=== PATIENT | female | born 1980 ===

== ENCOUNTER 2016-09-03 15:43 | Inpatient (IN) | payer SELFPAY ==
[2016-09-03] MEDS ORDERED: Sodium Chloride 0.9% 1,000 ML IV STA ×2 (16:41→20:21)
[2016-09-03 17:10] LABS: BASO % 0.2 % (0.0-2.0); EOS % 0.2 % (0.0-4.0); LYMPH # 1.1 K/uL (1.0-4.3); MEAN CELL VOLUME 86.5 fl (81.0-99.0); MEAN CORPUSCULAR HEMOGLOBIN 28.9 pg (27.0-31.0); MEAN CORPUSCULAR HGB CONC 33.4 g/dL (33.0-37.0); MEAN PLATELET VOLUME 9.2 fl (7.2-11.7); MONO # 0.5 K/uL (0.0-0.8); MONO % 4.8 % (0.0-10.0); NEUT # 8.6 K/uL (1.8-7.0); NEUT % 83.8 % (50.0-75.0); NRBC % 0.1 % (0.0-0.0); RED CELL DISTRIBUTION WIDTH 13.9 % (11.5-14.5); WHITE BLOOD COUNT 10.2 K/uL (4.8-10.8)
[2016-09-03 17:20] LABS: RBC URINE 50 /hpf (0-3); URINE BACTERIA RARE (<OCC); URINE BILIRUBIN NEGATIVE (NEGATIVE); URINE BLOOD MODERATE (NEGATIVE); URINE COLOR YELLOW (YELLOW); URINE GLUCOSE (UA) NEG (Normal); URINE KETONE TRACE mg/dL (NEGATIVE); URINE LEUKOCYTE ESTERASE LARGE Leu/uL (Negative); URINE PROTEIN 100 mg/dL (NEGATIVE); URINE UROBILINOGEN 0.2-1.0 mg/dL (0.2-1.0); WBC CLUMPS MANY /hpf; WBC URINE 477 /hpf (0-5)
[2016-09-03 17:26] LABS: ALB/GLOB RATIO 1.2 (1.0-2.1); ALKALINE PHOSPHATASE 85 U/L (38-126); ALT/SGPT 35 U/L (9-52); AST/SGOT 44 U/L (14-36); BILIRUBIN,TOTAL 0.4 mg/dl (0.2-1.3); BLOOD UREA NITROGEN 13 mg/dl (7-17); CALCIUM 9.3 mg/dL (8.4-10.2); CARBON DIOXIDE 25 mmol/L (22-30); CHLORIDE 101 mmol/L (98-107); GFR AFRICAN-AMERICAN > 60; GLUCOSE,RANDOM 124 mg/dL (65-105); LIPASE 20 U/L (23-300); POTASSIUM 3.4 MMOL/L (3.6-5.0); SODIUM 141 mmol/l (132-148)
--- NOTE | 2016-09-03 17:36 | US ---
HISTORY: RUQ pain with nausea COMPARISON: 10/18/2013 bilateral renal ultrasound 10/18/2013 CT abdomen and pelvis. TECHNIQUE: Sonographic evaluation of the right upper quadrant of the abdomen. FINDINGS: LIVER: Measures 13.1 cm in length. Patent portal vein. Portal venous flow: Hepatopetal. Unremarkeable echogenicity of the liver parenchyma. No mass. No intrahepatic bile duct dilatation. GALLBLADDER: Unremarkable. No gallstones. COMMON BILE DUCT: Measures 3.9 mm. No stones. No dilatation. PANCREAS: Unremarkable as visualized. No mass. No ductal dilatation. RIGHT KIDNEY: Measures 6.4 x 10.9 cm in length. Normal echogenicity. No calculus, mass, or hydronephrosis. AORTA: Obscured by overlying bowel gas. Non diagnostic assessment of abdominal aorta. IVC: Obscured by overlying bowel gas. Limited assessment of the IVC. OTHER FINDINGS: None . IMPRESSION: No significant or acute findings to account for/ related to the clinical presentation.
--- NOTE | 2016-09-03 17:38 | ED PDOC ---
HPI: Abdomen Chief Complaint (Provider): abdominal pain History Per: Patient History/Exam Limitations: no limitations <Milka Ricketts - Last Filed: 09/03/16 20:01> <Rhonda Montoya - Last Filed: 09/05/16 15:48> Time Seen by Provider: 09/03/16 16:04 Chief Complaint (Nursing): Abdominal Pain Additional Complaint(s): 35yo F in ED for eval of abdominal pain-in ED with 2-3 days of RUQ pain radiating to back with nausea without vomiting, no fever, chills. Able to tolerate PO. denies CP, SOB, palpitations. Denies freq urination, blood in urine or pelvic cramping with urination. hx of renal stones. pain 8/10 at its worse (Milka Ricketts) Supervising Attending Note - Supervising Attending Note The Documented history was done by the: Physician Director Appointment, Attending Physician The documented physical exam was done by the: Physician Director Appointment, Attending Physician - Attestation: I have personally seen and examined this patient.: Yes I have fully participated in the care of the patient.: Yes I have reviewed all pertinent clinical information: Yes <Rhonda Montoya - Last Filed: 09/05/16 15:48> Past Medical History Reviewed: Historical Data, Nursing Documentation, Vital Signs - Medical History PMH: No Chronic Diseases - Family History Family History: States: No Known Family Hx <Milka Ricketts - Last Filed: 09/03/16 20:01> <Rhonda Montoya - Last Filed: 09/05/16 15:48> Vital Signs: Last Vital Signs Temp 99.5 F 09/04/16 16:35 Pulse 93 H 09/04/16 16:35 Resp 20 09/04/16 16:35 BP 133/88 09/04/16 16:35 Pulse Ox 97 09/04/16 16:35 - Allergies Allergies/Adverse Reactions: Allergies Allergy/AdvReac Type Severity Reaction Status Date / Time No Known Allergies Allergy Verified 09/03/16 15:44 Review of Systems ROS Statement: Except As Marked, All Systems Reviewed And Found Negative Constitutional: Negative for: Fever, Chills Cardiovascular: Negative for: Chest Pain, Palpitations Gastrointestinal: Positive for: Nausea, Vomiting, Abdominal Pain. Negative for : Diarrhea, Constipation Genitourinary Female: Negative for: Dysuria <Milka Ricketts - Last Filed: 09/03/16 20:01> Physical Exam - Reviewed Nursing Documentation Reviewed: Yes Vital Signs Reviewed: Yes - Physical Exam Appears: Positive for: Non-toxic, No Acute Distress, Uncomfortable Head Exam: Positive for: ATRAUMATIC, NORMAL INSPECTION, NORMOCEPHALIC Cardiovascular/Chest: Positive for: Regular Rate, Rhythm Respiratory: Positive for: CNT, Normal Breath Sounds Gastrointestinal/Abdominal: Positive for: Bowel Sounds, Soft, Tenderness (RUQ pain). Negative for: Distended, Guarding Back: Positive for: L CVA Tenderness. Negative for: R CVA Tenderness Extremity: Positive for: Normal ROM Neurologic/Psych: Positive for: Alert, Oriented <Milka Ricketts - Last Filed: 09/03/16 20:01> - Laboratory Results Result Diagrams: 09/03/16 16:30 09/03/16 16:30 - ECG O2 Sat by Pulse Oximetry: 100 <Milka Ricketts - Last Filed: 09/03/16 20:01> - Laboratory Results Result Diagrams: 09/04/16 07:30 09/04/16 07:30 <Rhonda Montoya - Last Filed: 09/05/16 15:48> - Progress ED Course And Treament: pt with abdominal pain r/o renal stone vs cholecytisitis vs UTI. will get UA, US limited GB, CT w/o IV/PO contrast and fluids, zofran and torodol for pain control. (Milka Ricketts) - Critical Care Notes:: Pt UA: shows UTI, US: NAD labs WNL. (Milka Ricketts) Medical Decision Making <Milka Ricketts - Last Filed: 09/03/16 20:01> <Rhonda Montoya - Last Filed: 09/05/16 15:48> Medical Decision Making: CT results: 1. Staghorn calculi in the left kidney, largest measures approximately 4.6 cm. The Staghorn calculus extends into the proximal ureter. There is severe left hydronephrosis with renal cortical thinning. 2. Hyperdensity of left medullary pyramids, indicative of medullary nephrocalcinosis. Correlate clinically. 3. Retroperitoneal lymphadenopathy is noted, the largest in the periaortic region measures 2.6 x 1.3 cm. Thank you for allowing us to participate in the care of your patient. case discussed with MD Jan pt with evidence of pyelonephritis based on UA/symptoms complicated by staghorn calculi with hydronephrosis Pt will be admitted to hospitalist and Shruti urology consult pt improved mildly in ED but still with some nausea and back pain (Milka Ricketts) Disposition - Patient ED Disposition Is Patient to be Admitted: Yes - Disposition Disposition Time: 20:30 - Pt Status Changed To: Hospital Disposition Of: Inpatient - Admit Certification Admit to Inpatient:: After my assessment, the patient will require hospitalization for at least two midnights. This is because of the severity of symptoms shown, intensity of services needed, and/or the medical risk in this patient being treated as an outpatient. - POA Present On Arrival: None <Milka Ricketts - Last Filed: 09/03/16 20:01> <Rhonda Montoya - Last Filed: 09/05/16 15:48> - Clinical Impression Clinical Impression: Pyelonephritis, Renal stone - Disposition Condition: STABLE
--- NOTE | 2016-09-03 21:02 | ED PDOC ---
- Laboratory Results Result Diagrams: 09/03/16 16:30 09/03/16 16:30 - ECG O2 Sat by Pulse Oximetry: 100 - Progress ED Course And Treament: Signed out to me pending urology consult. 2100 Case d/w Dr. Bahena, urology plant operations manager, who agrees with care and plan. Disposition - Clinical Impression Clinical Impression: Pyelonephritis, Renal stone - POA Present On Arrival: None - Disposition Disposition: Routine/Home Disposition Time: 21:01 Condition: STABLE
[2016-09-03] MEDS ORDERED: Potassium Chloride 20 mEq ER Tab PO ONE ×2 (21:44→22:01)
--- NOTE | 2016-09-03 21:44 | CP.PCM.HP ---
History of Present Illness - History of Present Illness History of Present Illness: CC: abd pain L>R, n/v History taken in [place] via adult family members HPI: This is a 35 y/o female with a history of nephrolithiasis (requiring urology intervention in the past) who comes in with ~2 days of abdominal/L flank pain as well as n and an episode of vomiting. Denies dysuria or blood in urine. Denies f/c. ROS: 14 systems revealed, negative other than HPI MHx: Nephrolithiasis SHx: Urological intervention for above Allergies: NKDA Medications: None Family Hx: None per review Social Hx: Lives with family, denies EtOH, denies tobacco Present on Admission - Present on Admission Any Indicators Present on Admission: No Past Patient History - Past Social History Smoking Status: Never Smoked - RENAL Hx Chronic Kidney Disease: Yes Hx Kidney Stones: Yes - PSYCHIATRIC Hx Substance Use: No - SURGICAL HISTORY Hx Surgeries: Yes Other/Comment: Kidney stone - ANESTHESIA Hx Anesthesia: Yes Hx Anesthesia Reactions: No Hx Malignant Hyperthermia: No Meds Allergies/Adverse Reactions: Allergies Allergy/AdvReac Type Severity Reaction Status Date / Time No Known Allergies Allergy Verified 09/03/16 15:44 Physical Exam - Constitutional Appears: No Acute Distress - Head Exam Head Exam: ATRAUMATIC, NORMOCEPHALIC - Eye Exam Eye Exam: EOMI, PERRL - ENT Exam ENT Exam: Mucous Membranes Dry - Neck Exam Neck exam: Positive for: Full Rom - Respiratory Exam Respiratory Exam: Clear to Auscultation Bilateral, NORMAL BREATHING PATTERN - Cardiovascular Exam Cardiovascular Exam: REGULAR RHYTHM, +S1, +S2 - GI/Abdominal Exam GI & Abdominal Exam: Normal Bowel Sounds, Soft, Tenderness - Back Exam Back exam: CVA tenderness (L) - Neurological Exam Neurological exam: Alert, CN II-XII Intact, Oriented x3 - Psychiatric Exam Psychiatric exam: Normal Affect, Normal Mood - Skin Skin Exam: Dry, Warm Results - Vital Signs Recent Vital Signs: Last Vital Signs Temp 99.2 F 09/03/16 15:45 Pulse 85 09/03/16 17:44 Resp 16 09/03/16 17:44 BP 142/85 09/03/16 17:44 Pulse Ox 100 09/03/16 21:02 - Labs Result Diagrams: 09/03/16 16:30 09/03/16 16:30 - Imaging and Cardiology CT scan - abdomen Status: Image reviewed by me, Report reviewed by me (CT results:) Assessment & Plan (1) Pyelonephritis Assessment and Plan: 35 y/o female presenting with staghorn calculus (L) and pyelonepnritis. -NPO, IVF -Continue ceftriaxone 1 g daily -Continue pain mgmt as per scale -Will start on Flomax, although given extensiveness of calculus may not provide significant improvement -Urology consult ([place] notified) -SCDs only for DVT ppx in case of procedure Status: Acute (2) Renal stone Status: Acute (3) DVT prophylaxis Status: Acute
[2016-09-03] MEDS ORDERED: cefTRIAXone (Rocephin) 1 gm Inj ONE (22:01)
[2016-09-03] MEDS: Sodium Chloride 0.9% 1,000 ML IV SCH (23:43)
[2016-09-04] MEDS: Sodium Chloride 0.9% 1,000 ML IV SCH (06:35)
[2016-09-04 10:12] LABS: BASO % 0.3 % (0.0-2.0); EOS # 0.1 K/uL (0.0-0.7); EOS % 1.3 % (0.0-4.0); HEMATOCRIT 33.6 % (34.0-47.0); LYMPH % 20.7 % (20.0-40.0); MEAN CELL VOLUME 88.2 fl (81.0-99.0); MEAN CORPUSCULAR HEMOGLOBIN 28.7 pg (27.0-31.0); MEAN CORPUSCULAR HGB CONC 32.6 g/dL (33.0-37.0); MEAN PLATELET VOLUME 9.2 fl (7.2-11.7); MONO # 0.5 K/uL (0.0-0.8); MONO % 9.5 % (0.0-10.0); NEUT # 3.3 K/uL (1.8-7.0); NEUT % 68.2 % (50.0-75.0); RED CELL DISTRIBUTION WIDTH 14.6 % (11.5-14.5)
[2016-09-04 10:18] LABS: WHITE BLOOD COUNT 4.9 K/uL (4.8-10.8)
[2016-09-04 10:27] LABS: BLOOD UREA NITROGEN 8 mg/dl (7-17); CALCIUM 7.9 mg/dL (8.4-10.2); CARBON DIOXIDE 21 mmol/L (22-30); CHLORIDE 112 mmol/L (98-107); GFR AFRICAN-AMERICAN > 60; GLUCOSE,RANDOM 87 mg/dL (65-105); POTASSIUM 3.8 MMOL/L (3.6-5.0); SODIUM 139 mmol/l (132-148)
--- NOTE | 2016-09-04 11:08 | CT ---
PROCEDURE: CT Abdomen and Pelvis without contrast. HISTORY: left CVA tenderness COMPARISON: 10/18/2013 TECHNIQUE: Contiguous axial images of the abdomen and pelvis. No oral or IV contrast given. Coronal and Sagittal reformats generated. Please note that due to lack of intravenous and oral contrast, evaluation of soft tissue structures and bowel is limited. Radiation dose: Total exam DLP = 894.35 mGy-cm. This CT exam was performed using one or more of the following dose reduction techniques: Automated exposure control, adjustment of the mA and/or kV according to patient size, and/or use of iterative reconstruction technique. FINDINGS: LOWER THORAX: Unremarkable. LIVER: Unremarkable. No gross lesion or ductal dilatation. GALLBLADDER AND BILE DUCTS: Unremarkable. PANCREAS: Unremarkable. No mass. No ductal dilatation. SPLEEN: Unremarkable. No splenomegaly. ADRENALS: Unremarkable. KIDNEYS AND URETERS: Unremarkable. No stone or hydronephrosis. Enlargement of the left kidney with multiple large staghorn calculi is within collecting system. Moderate hydronephrosis. No significant hydroureter or obstructing radiopaque calculus within the left ureter. The left cortex is thin suggestive of chronic renal parenchymal disease. 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 Unremarkable right kidney. BLADDER: Grossly unremarkable. REPRODUCTIVE: Please note that evaluation of gynecologic organs is not optimal on CT imaging. Punctate calcification in the left adnexa which could be ovarian in origin. APPENDIX: Unremarkable. BOWEL: Suboptimal evaluation of the bowel due to lack oral contrast. No bowel obstruction. PERITONEUM: Small amount of fluid in the pelvis likely physiologic. No free air. LYMPH NODES: Few enlarged lymph nodes in the retroperitoneum particularly in the region of the left kidney measuring up to 2-3 centimeters. VASCULATURE: Unremarkable. No aortic aneurysm. BONES: No fracture or destructive lesion. OTHER FINDINGS: Calcified granuloma in the posterior soft tissues. IMPRESSION: Large staghorn calculi within the left collecting system associated cortical thinning and enlargement of the left kidney. 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 Moderate hydronephrosis on the left. No obstructing radiopaque calculus on the left. Relatively unremarkable right kidney. Enlarged lymph nodes in the retroperitoneum near the vicinity of the left kidney measuring up to 2-3 centimeters. Other findings as above. Please note that this report is in general agreement with the preliminary report provided by [facility].
--- NOTE | 2016-09-04 14:55 | CP.PCM.DIS ---
Provider - Provider Date of Admission: 09/03/16 20:41 Attending physician: Kali Parker MD Consults: urology consult Time Spent in preparation of Discharge (in minutes): 20 Hospital Course - Lab Results Lab Results: Most Recent Lab Values WBC 4.9 K/uL (4.8-10.8) D 09/04/16 07:30 RBC 3.82 Mil/uL (3.80-5.20) 09/04/16 07:30 Hgb 11.0 g/dL (12.0-16.0) L D 09/04/16 07:30 Hct 33.6 % (34.0-47.0) L 09/04/16 07:30 MCV 88.2 fl (81.0-99.0) 09/04/16 07:30 MCH 28.7 pg (27.0-31.0) 09/04/16 07:30 MCHC 32.6 g/dL (33.0-37.0) L 09/04/16 07:30 RDW 14.6 % (11.5-14.5) H 09/04/16 07:30 Plt Count 173 K/uL (130-400) 09/04/16 07:30 MPV 9.2 fl (7.2-11.7) 09/04/16 07:30 Neut % (Auto) 68.2 % (50.0-75.0) 09/04/16 07:30 Lymph % (Auto) 20.7 % (20.0-40.0) 09/04/16 07:30 [place] % (Auto) 9.5 % (0.0-10.0) 09/04/16 07:30 Eos % (Auto) 1.3 % (0.0-4.0) 09/04/16 07:30 Baso % (Auto) 0.3 % (0.0-2.0) 09/04/16 07:30 Neut # 3.3 K/uL (1.8-7.0) 09/04/16 07:30 Lymph # 1.0 K/uL (1.0-4.3) 09/04/16 07:30 [place] # 0.5 K/uL (0.0-0.8) 09/04/16 07:30 Eos # 0.1 K/uL (0.0-0.7) 09/04/16 07:30 Baso # 0.0 K/uL (0.0-0.2) 09/04/16 07:30 Sodium 139 mmol/l (132-148) 09/04/16 07:30 Potassium 3.8 MMOL/L (3.6-5.0) 09/04/16 07:30 Chloride 112 mmol/L (98-107) H 09/04/16 07:30 Carbon Dioxide 21 mmol/L (22-30) L 09/04/16 07:30 Anion Gap 10 (10-20) 09/04/16 07:30 BUN 8 mg/dl (7-17) 09/04/16 07:30 Creatinine 0.5 mg/dL (0.7-1.2) L 09/04/16 07:30 Est GFR ( Amer) > 60 09/04/16 07:30 Est GFR (Non-Af Amer) > 60 09/04/16 07:30 Random Glucose 87 mg/dL (65-105) 09/04/16 07:30 Calcium 7.9 mg/dL (8.4-10.2) L 09/04/16 07:30 Total Bilirubin 0.4 mg/dl (0.2-1.3) 09/03/16 16:30 AST 44 U/L (14-36) H 09/03/16 16:30 ALT 35 U/L (9-52) 09/03/16 16:30 Alkaline Phosphatase 85 U/L (38-126) 09/03/16 16:30 Total Protein 8.0 G/DL (6.3-8.2) 09/03/16 16:30 Albumin 4.3 g/dL (3.5-5.0) 09/03/16 16:30 Globulin 3.7 gm/dL (2.2-3.9) 09/03/16 16:30 Albumin/Globulin Ratio 1.2 (1.0-2.1) 09/03/16 16:30 Lipase 20 U/L (23-300) L 09/03/16 16:30 Urine Color Yellow (YELLOW) 09/03/16 16:30 Urine Clarity Cloudy (Clear) 09/03/16 16:30 Urine pH 7.0 (5.0-8.0) 09/03/16 16:30 Ur Specific [place] 1.010 (1.003-1.030) 09/03/16 16:30 Urine Protein 100 mg/dL (NEGATIVE) 09/03/16 16:30 Urine Glucose (UA) Neg mg/dL (Normal) 09/03/16 16:30 Urine Ketones Trace mg/dL (NEGATIVE) 09/03/16 16:30 Urine Blood Moderate (NEGATIVE) 09/03/16 16:30 Urine Nitrate Positive (NEGATIVE) H 09/03/16 16:30 Urine Bilirubin Negative (NEGATIVE) 09/03/16 16:30 Urine Urobilinogen 0.2-1.0 mg/dL (0.2-1.0) 09/03/16 16:30 Ur Leukocyte Esterase Large Joseph/uL (Negative) 09/03/16 16:30 Urine RBC (Auto) 50 /hpf (0-3) H 09/03/16 16:30 Urine WBC Clumps (Auto) Many /hpf (NONE) H 09/03/16 16:30 Urine Microscopic WBC 477 /hpf (0-5) H 09/03/16 16:30 Ur Squamous Epith Cells 1 /hpf (0-5) 09/03/16 16:30 Urine Bacteria Rare (<OCC) 09/03/16 16:30 Hyaline Casts 2 /hpf (0-2) 09/03/16 16:30 Urine Yeast (Budding) Few /hpf (NEGATIVE) H 09/03/16 16:30 - Hospital Course Hospital Course: This is a 35 y/o female with a history of nephrolithiasis (requiring urology intervention in the past) who came in with ~2 days of abdominal/L flank pain as well as nausea and an episode of vomiting. Denies dysuria or blood in urine. Denies f/c. Ct abdomen showed Large staghorn calculi within the left collecting system associated cortical thinning and enlargement of the left kidney. 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 Moderate hydronephrosis on the left. No obstructing radiopaque calculus on the left. Relatively unremarkable right kidney. Enlarged lymph nodes in the retroperitoneum near the vicinity of the left kidney measuring up to 2-3 centimeters. Laboratory work up showed normal WBC, HGB and renal function. Patient is able to void freely.Her UA showed bacteria , many WBC, nitrate + and large LE.Strated on rocephin IV and called urology consult. Patient is hemodynamiaclly stable, afebrile, pain is controlled .She will need to follow up with [facility]psy procedure since we do not have it in our hospital. Will prescribe Bactrim Po for 10 days and tramadol for pain control Advised patient to follow up with urologist (1) Pyelonephritis/uti Ua cloudy with bacterai, WBC, LE = and nitrates + Started Rocephin IV Will d/c on Po bactrim 2. Staghorn calculus follow up with [facility] for lithotripsy as out patient Discharge Exam - Head Exam Head Exam: ATRAUMATIC, NORMOCEPHALIC - Eye Exam Eye Exam: EOMI, Normal appearance, PERRL Pupil Exam: NORMAL ACCOMODATION - ENT Exam ENT Exam: Mucous Membranes Moist, Normal Exam - Neck Exam Neck exam: Full Rom, Normal Inspection - Respiratory Exam Respiratory Exam: Clear to PA & Lateral, NORMAL BREATHING PATTERN. absent: Rales, Rhonchi, Wheezes - Cardiovascular Exam Cardiovascular Exam: REGULAR RHYTHM, RRR, +S1, +S2. absent: JVD - GI/Abdominal Exam GI & Abdominal Exam: Normal Bowel Sounds, Soft. absent: Distended, Guarding, Rebound, Tenderness - Rectal Exam Rectal Exam: Deferred - Extremities Exam Extremities exam: normal capillary refill, normal inspection, pedal pulses present - Back Exam Back exam: NORMAL INSPECTION - Neurological Exam Neurological exam: Alert, CN II-XII Intact, Oriented x3, Reflexes Normal - Psychiatric Exam Psychiatric exam: Normal Affect, Normal Mood - Skin Skin Exam: Dry, Intact, Normal Color, Warm Discharge Plan - Discharge Medications Prescriptions: Sulfamethoxazole/Trimethoprim [Bactrim DS 800 mg-160 mg] 1 tab PO BID #20 tab traMADol [Ultram] 50 mg PO TID #30 tab - Follow Up Plan Condition: STABLE Disposition: HOME/ ROUTINE Patient education suggested?: Yes Instructions: Kidney Stones (DC), Lithotripsy (DC), Urinary Tract Infection in Women (DC) Referrals: Bobo Bahena MD [Medical Doctor] -
[2016-09-04 16:35] VITALS: BP 133/88; PULSE 93; RESP 20; TEMP 99.5; O2SAT 97
--- NOTE | 2016-09-04 19:57 | CP.PCM.PN ---
Subjective - Date & Time of Evaluation Date of Evaluation: 09/04/16 Time of Evaluation: 19:54 - Subjective Subjective: UROLOGY Spoke with pt. advised her that treatments vare available for her. she is given the opportunity to follow up as an outpatient to discuss the detsails of proposed tx. ok for discharge today Objective - Vital Signs/Intake and Output Vital Signs (last 24 hours): Temp Pulse Resp BP Pulse Ox 99.5 F 93 H 20 133/88 97 09/04/16 16:35 09/04/16 16:35 09/04/16 16:35 09/04/16 16:35 09/04/16 16:35 Intake and Output: 09/04/16 09/05/16 18:59 06:59 Intake Total 1300 Output Total 1000 Balance 300 - Medications Medications: Current Medications Acetaminophen (Tylenol 325mg Tab) 650 mg PO Q6 PRN PRN Reason: Pain, Mild (1-3) Acetaminophen (Tylenol 325mg Tab) 650 mg PO Q6 PRN PRN Reason: Fever >100.4 F Ceftriaxone Sodium 1 gm/ (Sodium Chloride) 100 mls @ 100 mls/hr IVPB DAILY [facility] Last Admin: 09/03/16 22:22 Dose: 100 mls/hr Ketorolac Tromethamine (Toradol) 15 mg IVP Q6 PRN PRN Reason: Pain, moderate (4-7) Last Admin: 09/04/16 06:38 Dose: 15 mg Morphine Sulfate (Morphine) 2 mg IVP Q4 PRN PRN Reason: Pain, severe (8-10) Ondansetron HCl (Zofran Inj) 4 mg IVP Q6 PRN PRN Reason: Nausea/Vomiting Tamsulosin HCl (Flomax) 0.4 mg PO DAILY@0900 [facility] Last Admin: 09/04/16 10:21 Dose: 0.4 mg - Labs Labs: 09/04/16 07:30 09/04/16 07:30
== END 2016-09-04 21:10 | disposition home or self-care (01) | DRG 690 ==
LOC: H.ER 15:43 → H.ERHOLD 20:41 → H.MEDSURG1 23:22
PROVIDERS: ADMIT Internal Medicine; ATTEND Internal Medicine
DX: N13.6 Pyonephrosis (principal); N18.9 Chronic kidney disease, unspecified; Z87.442 Personal history of urinary calculi

== ENCOUNTER 2017-04-23 08:40 | Emergency (ER) | payer OTHER ==
[2017-04-23 08:45] VITALS: BMI 24.6
[2017-04-23 08:47] VITALS: O2SAT 97
--- NOTE | 2017-04-23 09:20 | ED PDOC ---
HPI: General Adult Time Seen by Provider: 04/23/17 09:12 Chief Complaint (Nursing): Fever Chief Complaint (Provider): Flu-like symptoms History Per: Patient History/Exam Limitations: no limitations Onset/Duration Of Symptoms: Days (1 day ago) Current Symptoms Are (Timing): Still Present Additional Complaint(s): 36 y/o female with a history of kidney stones presents to the ED complaining of fever, body aches, sore throat, and non-productive cough, onset of 1 day. Past Medical History Reviewed: Historical Data, Nursing Documentation, Vital Signs Vital Signs: Last Vital Signs Temp 101.7 F H 04/23/17 09:45 Pulse 112 H 04/23/17 08:45 Resp 17 04/23/17 08:45 BP 151/112 H 04/23/17 08:45 Pulse Ox 97 04/23/17 09:25 - Medical History PMH: Kidney Stones, Chronic Kidney Disease - Surgical History Surgical History: No Surg Hx - Family History Family History: States: Unknown Family Hx - Social History Current smoker - smoking cessation education provided: No Ex-Smoker (has not smoked in the last 12 months): No Alcohol: None Drugs: Denies - Home Medications Home Medications: Ambulatory Orders Medication Instructions Recorded Sulfamethoxazole/Trimethoprim 1 tab PO BID #20 tab 09/04/16 [Bactrim DS 800 mg-160 mg] traMADol [Ultram] 50 mg PO TID #30 tab 09/04/16 Naproxen [Naprosyn] 500 mg PO Q12H #20 tab 04/23/17 Oseltamivir [Tamiflu] 75 mg PO BID #10 cap 04/23/17 - Allergies Allergies/Adverse Reactions: Allergies Allergy/AdvReac Type Severity Reaction Status Date / Time No Known Allergies Allergy Verified 09/03/16 15:44 Review of Systems ROS Statement: Except As Marked, All Systems Reviewed And Found Negative Constitutional: Positive for: Fever, Other (body aches) ENT: Positive for: Throat Pain Respiratory: Positive for: Cough (non-productive) Physical Exam - Reviewed Nursing Documentation Reviewed: Yes Vital Signs Reviewed: Yes - Physical Exam Appears: Positive for: Non-toxic, No Acute Distress Head Exam: Positive for: ATRAUMATIC Skin: Positive for: Normal Color, Warm Eye Exam: Positive for: Normal appearance, EOMI, PERRL ENT: Positive for: Normal ENT Inspection, Pharyngeal Erythema. Negative for: Tonsillar Exudate Neck: Positive for: Normal, Painless ROM, Supple Cardiovascular/Chest: Positive for: Regular Rate, Rhythm. Negative for: Murmur Respiratory: Positive for: Normal Breath Sounds. Negative for: Respiratory Distress Gastrointestinal/Abdominal: Positive for: Normal Exam, Soft. Negative for: Tenderness Back: Positive for: Normal Inspection. Negative for: L CVA Tenderness, R CVA Tenderness Extremity: Positive for: Normal ROM. Negative for: Pedal Edema, Deformity Neurologic/Psych: Positive for: Alert, Oriented. Negative for: Motor/Sensory Deficits - ECG O2 Sat by Pulse Oximetry: 97 (RA) Pulse Ox Interpretation: Normal Medical Decision Making Medical Decision Making: Time: --09:16 Impression: --Flu-like symptoms Plan: --ED Urine Dip --ED Urine --Influenza A b Reassess -- Scribe Attestation: Documented by Ector Saunders acting as a scribe for Salvador Rider MD. Disposition - Clinical Impression Clinical Impression: Influenza - Patient ED Disposition Is Patient to be Admitted: No Counseled Patient/Family Regarding: Studies Performed, Diagnosis, Need For Followup, Rx Given - Disposition Referrals: [facility] [Outside] Disposition: Routine/Home Disposition Time: 10:24 Condition: FAIR Prescriptions: Naproxen [Naprosyn] 500 mg PO Q12H #20 tab Oseltamivir [Tamiflu] 75 mg PO BID #10 cap Instructions: Influenza (ED) Forms: [facility] (Ugandan) Print Language: LATVIAN
[2017-04-23 12:26] VITALS: BP 142/92; PULSE 94; RESP 18; TEMP 100.5
== END 2017-04-23 11:35 | disposition home or self-care (01) ==
LOC: H.ER 08:40
DX: J11.1 Influenza due to unidentified influenza virus with other respiratory manifestations (principal); Z87.442 Personal history of urinary calculi